=== PATIENT | male | born 1970 | race African-American/Black ===

== ENCOUNTER 2016-09-01 00:12 | Emergency (ER) | payer OTHER ==
[~2016-09-01] VITALS: Ht 193 cm; Wt 120.2 kg
[~2016-09-01 00:12] MED LIST: DARVOCET-N 1001 EACH PO; DIABETA; DOXYCYCLINE 10100 MG PO; METFORMIN 500500 MG PO
[2016-09-01 00:29] VITALS: BP 209/125
[2016-09-01] MEDS ORDERED: ZESTORETIC 20-1 EAC2 PO (00:33)
[2016-09-01] MEDS ORDERED: GLUCOPHAGE1000 MG PO (00:33)
[2016-09-01] MEDS ORDERED: TRAMADOL 50 MG50 MG PO (01:52)
[2016-09-01] MEDS ORDERED: CLEOCIN HCL150 MG PO (01:52)
== END 2016-09-01 02:04 | disposition home or self-care (01) ==
LOC: ER 00:12
DX: J34.0 Abscess, furuncle and carbuncle of nose (principal); Z91.14 Patient's other noncompliance with medication regimen; I10 Essential (primary) hypertension; E11.9 Type 2 diabetes mellitus without complications

== ENCOUNTER 2017-03-12 06:40 | Emergency (ER) | payer OTHER ==
[~2017-03-12] VITALS: Ht 193 cm; Wt 117.9 kg
[~2017-03-12 06:40] MED LIST changes: +CLEOCIN HCL150 MG PO; +GLUCOPHAGE1000 MG PO; +NORCO 5-325 TA1 EACH PO; +TRAMADOL 50 MG50 MG PO; +ZESTORETIC 20-1 EAC2 PO; +ZOFRAN ODT4 MG PO
[2017-03-12 08:15] VITALS: BP 161/92
[2017-03-12] MEDS ORDERED: KEFLEX500 MG PO (08:26)
[2017-03-12] MEDS ORDERED: NAPROSYN500 MG PO (08:26)
== END 2017-03-12 09:54 | disposition home or self-care (01) ==
LOC: ER 06:40
DX: L03.116 Cellulitis of left lower limb (principal); E11.9 Type 2 diabetes mellitus without complications; I10 Essential (primary) hypertension; Z88.6 Allergy status to analgesic agent